=== PATIENT | female | born 1960 | race Two or more races ===

== ENCOUNTER 2024-05-27 13:38 | Emergency (ER) | payer BC ==
[~2024-05-27] VITALS: Ht 165.1 cm; Wt 64.4 kg
[2024-05-27] MEDS ORDERED: ATORVASTATIN CA10 MG PO (14:38)
[2024-05-27] MEDS ORDERED: LIDOCAINE HCL 1% 10ML VIAL PERCUT ONE (15:30)
[2024-05-27] MEDS ORDERED: TETANUS & DIPHTHERIA TOX,ADULT 0.5 ML VIAL IM ONE (15:30)
[2024-05-27] MEDS ORDERED: LIDOCAINE HCL 1% 10ML VIAL ONE (15:32)
[2024-05-27] MEDS ORDERED: TETANUS DIPHTHERIA TOX. ADSOR 5 ML VIAL IM ONE (15:32)
[2024-05-27] MEDS ORDERED: DUI500 PO (17:12)
== END 2024-05-27 17:31 | disposition home or self-care (01) ==
LOC: ER 13:40
DX: S01.81XA Laceration without foreign body of other part of head, initial encounter (principal); W19.XXXA Unspecified fall, initial encounter; Y93.89 Activity, other specified; Y92.830 Public park as the place of occurrence of the external cause; Y99.8 Other external cause status; I10 Essential (primary) hypertension
CPT/HCPCS: 12011; 71046; 71111; 90471; 90714; 96372; J1670